=== PATIENT | male | born 1960 | race Hispanic/Latino ===

== ENCOUNTER 2022-01-24 15:25 | Outpatient (CLI) | payer OTHER ==
[2022-01-25 00:57] LABS: SARS-CoV-2 PCR by NAA Not Detected (NotDetected)
== END 2022-01-24 15:26 | disposition home or self-care (01) ==
LOC: CSHLAB 15:25
PROVIDERS: ATTEND Internal Medicine Gastroenterology
DX: Z20.822 Contact with and (suspected) exposure to COVID-19 (principal); Z12.11 Encounter for screening for malignant neoplasm of colon
CPT/HCPCS: U0003; U0005

== ENCOUNTER 2022-01-27 07:26 | Day surgery (SDC) | payer OTHER ==
[2022-01-25 13:45] VITALS: BMI 23.0
[2022-01-27] MEDS ORDERED: Lidocaine 1% MPF 2 ML VIAL ONE (07:39)
[2022-01-27] MEDS ORDERED: PROPOFOL 40 ML ONE (09:03)
[2022-01-27] MEDS ORDERED: Lidocaine 1% PF 5 ML VIAL ONE (09:04)
== END 2022-01-27 10:20 | disposition home or self-care (01) ==
LOC: CSHSDC 07:26
PROVIDERS: ATTEND Internal Medicine Gastroenterology
PROC: 0DJD8ZZ Inspection of Lower Intestinal Tract, Via Natural or Artificial Opening Endoscopic (ICD-10-PCS; principal; 2022-01-27)
DX: Z12.11 Encounter for screening for malignant neoplasm of colon (principal); K64.9 Unspecified hemorrhoids; F32.A Depression, unspecified; F41.9 Anxiety disorder, unspecified; E03.9 Hypothyroidism, unspecified; E78.5 Hyperlipidemia, unspecified; E11.9 Type 2 diabetes mellitus without complications
CPT/HCPCS: J2704